=== PATIENT | male | born 1965 | race American Indian/Alaskan Native ===

== ENCOUNTER 2016-11-04 12:52 | Emergency (ER) | payer MEDICAID ==
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
--- NOTE | 2016-11-04 14:38 | XRay Report ---
LEFT ELBOW, 3 views: History: Left elbow pain Normal bone mineralization. No acute osseous findings or joint pathology is appreciated. Moderate olecranon spur is noted. IMPRESSION: No evidence for acute injury. Olecranon spur.
[2016-11-04 15:23] LABS: Urine Drugs of Abuse Note Disclamer
[2016-11-04 15:31] LABS: Basophils % (Auto) 0.7 % (0.0-1.8); Eosinophils % (Auto) 2.4 % (0.0-4.3); Hematocrit 43.2 % (35.5-45.6); Hemoglobin 14.5 gm/dl (11.8-15.2); Mean Corpuscular HGB Conc 34 % (32-34); Mean Corpuscular Hemoglobin 31 pg (28-32); Mean Corpuscular Volume 93 fl (84-94); Platelet Count 233 K/mm3 (140-440); Red Blood Count 4.66 M/mm3 (3.65-5.03); Red Cell Distribution Width 16.2 % (13.2-15.2); White Blood Count 4.6 K/mm3 (4.5-11.0)
[2016-11-04 15:33] LABS: Bilirubin,Urine NEG (Negative); Blood,Urine NEG (Negative); Ketones,Urine NEG (Negative); Leukocyte Esterase,Urine NEG (Negative); Mucus,Urine 3+ /HPF; Nitrite,Urine NEG (Negative); Protein,Urine <15 mg/dL mg/dL (Negative)
--- NOTE | 2016-11-04 15:50 | Emergency Department Report ---
HPI - General Chief Complaint: Psych Time Seen by Provider: 11/04/16 15:35 - HPI HPI: Room 12 The patient is a 51-year-old male presenting with a chief complaint of auditory hallucinations and suicidal ideation. The patient states she has a history of schizophrenia and has been off of his Wellbutrin for approximately 2 weeks. Patient states for approximately 3 days he has had auditory hallucinations and felt paranoid. The patient states he told his roommate and they encouraged him to come to the hospital. The patient states his auditory hallucinations are telling him that "people are out to hurt me." The patient was triaged today he admitted to the [facility] that he was suicidal ideation and he was having active auditory hallucinations telling him to hang himself. The patient admits to attempting to hang himself 11-12 years ago. Location: Mental state Duration: [see above] Quality: Suicidal Severity: Severe Modifying factors: [see above] Context: [see above] Mode of transportation: [not driving] ED Past Medical Hx - Past Medical History Hx Psychiatric Treatment: Yes (schizophrenia) - Surgical History Additional Surgical History: Herniorrhaphy - Family History Family history: no significant - Social History Smoking Status: Current Every Day Smoker (2-3 cigarettes a day) Substance Use Type: None - Medications Home Medications: Home Medications Medication Instructions Recorded Confirmed Last Taken Type Gabapentin [Neurontin] 400 mg PO BID 11/04/16 11/04/16 Unknown History QUEtiapine [SEROquel] 200 mg PO BID 11/04/16 11/04/16 Unknown History buPROPion [Wellbutrin] 300 mg PO DAILY 11/04/16 11/04/16 Unknown History ED Review of Systems ROS: Stated complaint: MH/HEARING VOICES Other details as noted in HPI Comment: All other systems reviewed and negative Constitutional: denies: chills, fever Eyes: denies: eye pain, eye discharge, vision change ENT: denies: ear pain, throat pain Respiratory: denies: cough, shortness of breath, wheezing Cardiovascular: denies: chest pain, palpitations Endocrine: no symptoms reported Gastrointestinal: denies: abdominal pain, nausea, diarrhea Genitourinary: denies: urgency, dysuria Musculoskeletal: denies: back pain, joint swelling, arthralgia Skin: denies: rash, lesions Neurological: denies: headache, weakness, paresthesias Psychiatric: auditory hallucinations, suicidal thoughts Hematological/Lymphatic: denies: easy bleeding, easy bruising Physical Exam - Physical Exam Vital Signs: Vital Signs 11/04/16 11/04/16 11/04/16 13:07 14:35 14:53 Temperature 98.6 F 98.4 F Pulse Rate 86 78 Respiratory 20 12 12 Rate Blood Pressure 110/73 Blood Pressure 110/68 [Left] O2 Sat by Pulse 98 99 99 Oximetry Physical Exam: GENERAL: The patient is well-developed well-nourished male standing in room not appearing to be in acute distress. [] HEENT: Normocephalic. Atraumatic. Extraocular motions are intact. Patient has moist mucous membranes. NECK: Supple. Trachea midline CHEST/LUNGS: Clear to auscultation. There is no respiratory distress noted. HEART/CARDIOVASCULAR: Regular. There is no tachycardia. There is no gallop rub or murmur. ABDOMEN: Abdomen is soft, nontender. Patient has normal bowel sounds. There is no abdominal distention. SKIN: There is no rash. There is no edema. There is no diaphoresis. NEURO: The patient is awake, alert, and oriented. The patient is cooperative. The patient has normal speech and gait MUSCULOSKELETAL: There is no evidence of acute injury. n. ED Course Vital Signs 11/04/16 11/04/16 11/04/16 13:07 14:35 14:53 Temperature 98.6 F 98.4 F Pulse Rate 86 78 Respiratory 20 12 12 Rate Blood Pressure 110/73 Blood Pressure 110/68 [Left] O2 Sat by Pulse 98 99 99 Oximetry ED Medical Decision Making - Lab Data Result diagrams: 11/04/16 15:14 11/04/16 15:14 Laboratory Tests 11/04/16 11/04/16 11/04/16 15:14 15:14 15:14 WBC 4.6 RBC 4.66 Hgb 14.5 Hct 43.2 MCV 93 MCH 31 MCHC 34 RDW 16.2 H Plt Count 233 Lymph % (Auto) 48.1 H Gregory % (Auto) 9.1 H Eos % (Auto) 2.4 Baso % (Auto) 0.7 Lymph # 2.2 Gregory # 0.4 Eos # 0.1 Baso # 0.0 Seg Neutrophils % 39.7 L Seg Neutrophils # 1.8 Sodium 142 Potassium 4.4 Chloride 103.9 Carbon Dioxide 25 Anion Gap 18 BUN 13 Creatinine 0.7 L Estimated GFR > 60 BUN/Creatinine Ratio 18.57 Glucose 91 Calcium 8.8 TSH 0.864 Free T4 Urine Color Urine Turbidity Urine pH Ur Specific [place] Urine Protein Urine Glucose (UA) Urine Ketones Urine Blood Urine Nitrite Urine Bilirubin Urine Urobilinogen Ur Leukocyte Esterase Urine WBC (Auto) Urine RBC (Auto) U Epithel Cells (Auto) Urine Mucus Salicylates Urine Opiates Screen Urine Methadone Screen Acetaminophen Ur Barbiturates Screen Ur Phencyclidine Scrn Ur Amphetamines Screen U Benzodiazepines Scrn Urine Cocaine Screen U Marijuana (THC) Screen Drugs of Abuse Note Plasma/Serum Alcohol 11/04/16 11/04/16 11/04/16 15:14 15:14 15:19 WBC RBC Hgb Hct MCV MCH MCHC RDW Plt Count Lymph % (Auto) Gregory % (Auto) Eos % (Auto) Baso % (Auto) Lymph # Gregory # Eos # Baso # Seg Neutrophils % Seg Neutrophils # Sodium Potassium Chloride Carbon Dioxide Anion Gap BUN Creatinine Estimated GFR BUN/Creatinine Ratio Glucose Calcium TSH Free T4 Urine Color Yellow Urine Turbidity Clear Urine pH 5.0 Ur Specific [place] 1.026 Urine Protein <15 mg/dl Urine Glucose (UA) Neg Urine Ketones Neg Urine Blood Neg Urine Nitrite Neg Urine Bilirubin Neg Urine Urobilinogen 2.0 Ur Leukocyte Esterase Neg Urine WBC (Auto) 1.0 Urine RBC (Auto) 1.0 U Epithel Cells (Auto) < 1.0 Urine Mucus 3+ Salicylates Urine Opiates Screen Urine Methadone Screen Acetaminophen < 15.0 Ur Barbiturates Screen Ur Phencyclidine Scrn Ur Amphetamines Screen U Benzodiazepines Scrn Urine Cocaine Screen U Marijuana (THC) Screen Drugs of Abuse Note Plasma/Serum Alcohol < 0.01 11/04/16 11/04/16 11/04/16 15:19 15:21 15:21 WBC RBC Hgb Hct MCV MCH MCHC RDW Plt Count Lymph % (Auto) Gregory % (Auto) Eos % (Auto) Baso % (Auto) Lymph # Gregory # Eos # Baso # Seg Neutrophils % Seg Neutrophils # Sodium Potassium Chloride Carbon Dioxide Anion Gap BUN Creatinine Estimated GFR BUN/Creatinine Ratio Glucose Calcium TSH Free T4 1.19 Urine Color Urine Turbidity Urine pH Ur Specific [place] Urine Protein Urine Glucose (UA) Urine Ketones Urine Blood Urine Nitrite Urine Bilirubin Urine Urobilinogen Ur Leukocyte Esterase Urine WBC (Auto) Urine RBC (Auto) U Epithel Cells (Auto) Urine Mucus Salicylates < 0.3 L Urine Opiates Screen Presumptive negative Urine Methadone Screen Presumptive negative Acetaminophen Ur Barbiturates Screen Presumptive negative Ur Phencyclidine Scrn Presumptive negative Ur Amphetamines Screen Presumptive negative U Benzodiazepines Scrn Presumptive negative Urine Cocaine Screen Presumptive negative U Marijuana (THC) Screen Presumptive negative Drugs of Abuse Note Disclamer Plasma/Serum Alcohol - Radiology Data Radiology results: report reviewed (left elbow x-ray), image reviewed (left elbow x-ray) interpreted by me: Left elbow x-ray-no acute fractures Left elbow x-ray (read by radiologist) -no evidence for acute injury. Olecranon spur - Differential Diagnosis schizophrenia, suicidal ideation Critical care attestation.: If time is entered above; I have spent that time in minutes in the direct care of this critically ill patient, excluding procedure time. ED Disposition Clinical Impression: schizophrenia, suicidal ideation, Auditory hallucinations Disposition: DC/TX PSY HOSP/PSY UNIT Is pt being admited?: No Does the pt Need Aspirin: No Condition: Serious Time of Disposition: 15:55 (awaiting acceptance)
[2016-11-04 15:54] LABS: Anion Gap 18 mmol/L; BUN/Creatinine Ratio 18.57; Blood Urea Nitrogen 13 mg/dL (9-20); Calcium 8.8 mg/dL (8.4-10.2); Carbon Dioxide 25 mmol/L (22-30); Chloride 103.9 mmol/L (98-107); Glucose 91 mg/dL (75-100); Potassium 4.4 mmol/L (3.6-5.0); Sodium 142 mmol/L (137-145)
[2016-11-04 22:34] VITALS: BP 114/68
== END 2016-11-04 23:45 ==
LOC: EEVIPCON 12:52 → ED 12:52
DX: F20.9 Schizophrenia, unspecified (principal); R45.851 Suicidal ideations; R44.0 Auditory hallucinations; F17.210 Nicotine dependence, cigarettes, uncomplicated
CPT/HCPCS: 36415; 73080; 80048; 80307; 81001; 84439; 84443; 85025; 99285; G0480; 80320